=== PATIENT | female | born 1980 | race Caucasian/White ===

== ENCOUNTER 2018-01-01 12:20 | Emergency (ER) | payer BC, OTHER ==
[2018-01-01] MEDS ORDERED: Sodium Chloride 0.9% 1,000 ML IV ONE (12:38)
[2018-01-01 12:39] VITALS: BP 125/62
--- NOTE | 2018-01-01 12:52 | EDM.PDOC ---
ED HPI GENERAL MEDICAL PROBLEM - General Chief Complaint: Diabetic Complaint Stated Complaint: DEHYDRATION Time Seen by Provider: 01/01/18 12:40 Source of Information: Reports: Patient History Limitations: Reports: No Limitations - History of Present Illness INITIAL COMMENTS - FREE TEXT/NARRATIVE: This 37 yo female patient reports to the ED due to an episode of near syncope. The patient reports she has been having bowel issues over the past couple of months with intermittent diarrhea. The patient reports that she has seen a GI specialist and has further testing scheduled for the end of January (upper and lower scopes). The patient has a history of Diabetes and is on an insulin pump. The patient reports her last A1C was 6.5. The patient reports that she was running today and started to have some lightheadedness and dizziness. The patient believes with the extra work outs and diarrhea that she is dehydrated. The patient reports that she had a loose bowel movement yesterday. Onset: Sudden Duration: Constant Location: Reports: Generalized Quality: Reports: Other Severity: Moderate Improves with: Reports: Rest Worsens with: Reports: Movement Context: Reports: Exercise - Related Data Allergies Allergy/AdvReac Type Severity Reaction Status Date / Time amoxicillin [Amoxicillin] Allergy Rash Verified 12/07/15 09:03 Home Meds: Home Meds Hydrochlorothiazide 25 mg PO DAILY 07/23/13 [History] Insulin Lispro [Humalog] 2.25 units SQ ASDIRECTED 07/23/13 [History] Levothyroxine Sodium 150 mcg PO DAILY 07/23/13 [History] Lisinopril 40 mg PO DAILY 07/23/13 [History] atorvaSTATin Calcium [Atorvastatin Calcium] 10 mg PO DAILY 07/23/13 [History] Albuterol [Proventil Neb Soln] 1 packet INH QID PRN 08/13/15 [History] Past Medical History Cardiovascular History: Reports: Hypertension Respiratory History: Reports: Bronchitis, Recurrent, Other (See Below) Other Respiratory History: currently with pneumonia, uses home neb tx since she has been ill 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: Musculoskeletal History: Reports: Arthritis Other Psychiatric History: has not taken anti-depressants for 5 years Endocrine/Metabolic History: Reports: Diabetes, Type I, Hypothyroidism - Infectious Disease History Infectious Disease History: Reports: Chicken Pox - Past Surgical History Female Surgical History: Reports: Oophorectomy, Other (See Below) Social & Family History - Family History Cardiac: Reports: Heart Failure Respiratory: Reports: Asthma Neurological: Reports: Dementia Endocrine/Metabolic: Reports: Diabetes, Type I Dermatologic: Reports: Psoriasis Oncologic: Reports: Prostate ED ROS GENERAL - Review of Systems Review Of Systems: ROS reveals no pertinent complaints other than HPI. ED EXAM GENERAL NO PERIP PULSE - Physical Exam Exam: See Below Exam Limited By: No Limitations General Appearance: Alert, WD/WN, Mild Distress Eye Exam: Bilateral Eye: EOMI, Normal Inspection, PERRL Ears: Normal External Exam, Normal Canal, Hearing Grossly Normal, Normal TMs Nose: Normal Inspection, Normal Mucosa, No Blood Throat/Mouth: Normal Inspection Head: Atraumatic, Normocephalic Neck: Normal Inspection, Supple, Non-Tender, Full Range of Motion Respiratory/Chest: No Respiratory Distress Cardiovascular: Normal Peripheral Pulses, Regular Rate, Rhythm, No Edema, No Gallop, No JVD, No Murmur, No Rub GI/Abdominal: Normal Bowel Sounds, Soft, Non-Tender, No Organomegaly, No Distention, No Abnormal Bruit, No Mass (Female) Exam: Deferred Rectal (Female) Exam: Deferred Back Exam: Normal Inspection, Full Range of Motion, NT Extremities: Normal Inspection, Normal Range of Motion, Non-Tender, Normal Capillary Refill, No Pedal Edema Neurological: Alert, Oriented, CN II-XII Intact, Normal Cognition, Normal Gait, Normal Reflexes, No Motor/Sensory Deficits Psychiatric: Normal Affect, Normal Mood Skin Exam: Warm, Dry, Intact, Normal Color, No Rash Lymphatic: No Adenopathy Course - Vital Signs Last Recorded V/S: Last Vital Signs Temp 36.2 C 01/01/18 12:38 Pulse 64 01/01/18 12:38 Resp 16 01/01/18 12:38 BP 125/62 01/01/18 12:38 Pulse Ox 99 01/01/18 12:38 - Orders/Labs/Meds Labs: Laboratory Tests 01/01/18 01/01/18 01/01/18 Range/Units 12:52 12:52 12:52 WBC 14.4 H (5.0-10.0) 10^3/uL RBC 4.55 (4.2-5.4) 10^6/uL Hgb 13.6 (12.0-16.0) g/dL Hct 40.4 (37.0-47.0) % MCV 88.8 (80-100) fL MCH 29.9 (27.0-34.0) pg MCHC 33.7 (33.0-35.0) g/dL Plt Count 251 (150-450) 10^3/uL Neut % (Auto) 86.5 H (42.2-75.2) % Lymph % (Auto) 8.3 L (20.5-50.1) % [place] % (Auto) 4.6 (2-8) % Eos % (Auto) 0.3 L (1.0-3.0) % Baso % (Auto) 0.3 (0.0-1.0) % Sodium 133 L (135-145) mmol/L Potassium 3.4 L (3.6-5.0) mmol/L Chloride 103 (101-111) mmol/L Carbon Dioxide 22.0 (21.0-31.0) mmol/L Anion Gap 11.4 BUN 14 (7-18) mg/dL Creatinine 1.0 (0.6-1.3) mg/dL Est Cr Clr Drug Dosing 82.48 mL/min Estimated GFR (MDRD) > 60 BUN/Creatinine Ratio 14.00 Glucose 203 H (74-105) mg/dL Calcium 8.8 (8.4-10.2) mg/dl Total Bilirubin 1.4 H (0.2-1.0) mg/dL AST 21 (10-42) IU/L ALT 17 (10-60) IU/L Alkaline Phosphatase 53 (42-121) IU/L Total Protein 7.0 (6.7-8.2) g/dl Albumin 3.9 (3.2-5.5) g/dl Globulin 3.1 Albumin/Globulin Ratio 1.26 Ketones Negative Meds: Medications Discontinued Medications Generic Name Dose Route Start Last Admin Trade Name Freq PRN Reason Stop Dose Admin Sodium Chloride 1,000 mls @ 999 mls/hr 01/01/18 12:38 01/01/18 13:08 Normal Saline IV 01/01/18 13:38 999 mls/hr .BOLUS ONE Administration Departure - Departure Time of Disposition: 14:16 Disposition: Home, Self-Care 01 Condition: Good Clinical Impression: Dehydration after exertion - Discharge Information *PRESCRIPTION DRUG MONITORING PROGRAM REVIEWED*: Not Applicable *COPY OF PRESCRIPTION DRUG MONITORING REPORT IN PATIENT RICCARDO: Not Applicable Instructions: Dehydration, Adult, [id number] Forms: ED Department Discharge Care Plan Goals: The patient was advised of the examination and lab results during the visit. The patient was given a liter of IV fluids while in the ED. The patient was encouraged to increase her oral fluid intake with exercise (pre hydrate). If she has any additional symptoms or further concerns, the patient should follow- up with her primary care facility or return to the emergency department.
[2018-01-01 13:15] LABS: ANION GAP 11.4; CHLORIDE,CL 103 mmol/L (101-111); SODIUM,NA 133 mmol/L (135-145)
== END 2018-01-01 14:21 | disposition home or self-care (01) ==
LOC: DL.ED 12:20
DX: E86.0 Dehydration (principal); E10.9 Type 1 diabetes mellitus without complications; I10 Essential (primary) hypertension; Z79.899 Other long term (current) drug therapy; Z88.1 Allergy status to other antibiotic agents
CPT/HCPCS: 36415; 80053; 82009; 85025; 96360; 99284; J7030

== ENCOUNTER 2018-07-31 19:04 | Emergency (ER) | payer OTHER ==
[2018-07-31 19:12] VITALS: BP 140/86
[2018-07-31] MEDS ORDERED: Tetracaine HCl/PF 0.5% 4 ML Bottle EYERT ONE (19:29)
[2018-07-31] MEDS ORDERED: Sodium Chloride 0.9% 1,000 ML IV ONE (19:30)
[2018-07-31] MEDS ORDERED: Ketorolac 30 MG/ML SDV IVPUSH ONE (19:30)
--- NOTE | 2018-07-31 19:34 | EDM.PDOC ---
ED HPI GENERAL MEDICAL PROBLEM - General Chief Complaint: ENT Problem Stated Complaint: DIABETIC, EARACHE OUT OF CONTROL Time Seen by Provider: 07/31/18 19:31 Source of Information: Reports: Patient History Limitations: Reports: No Limitations - History of Present Illness INITIAL COMMENTS - FREE TEXT/NARRATIVE: onset right ear pain Friday, did tried using some old ear drops but not helping , got worse went to clinic today got ciprodex but still in pain and now feels feverish. doesn't want pain meds due to side effects. 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: Acetaminophen, NSAIDS, Other Medication(s) Right Ear Pain Score (Numeric/FACES): 8 - Related Data Allergies Allergy/AdvReac Type Severity Reaction Status Date / Time amoxicillin [Amoxicillin] Allergy Rash Verified 12/07/15 09:03 Home Meds: Home Meds Hydrochlorothiazide 25 mg PO DAILY 07/23/13 [History] Insulin Lispro [Humalog] 2.25 units SQ ASDIRECTED 07/23/13 [History] Levothyroxine Sodium 150 mcg PO DAILY 07/23/13 [History] Lisinopril 40 mg PO DAILY 07/23/13 [History] atorvaSTATin Calcium [Atorvastatin Calcium] 10 mg PO DAILY 07/23/13 [History] Albuterol [Proventil Neb Soln] 1 packet INH QID PRN 08/13/15 [History] Past Medical History Cardiovascular History: Reports: Hypertension Respiratory History: Reports: Bronchitis, Recurrent, Other (See Below) Other Respiratory History: currently with pneumonia, uses home neb tx since she has been ill 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: Musculoskeletal History: Reports: Arthritis Psychiatric History: Reports: Depression Other Psychiatric History: has not taken anti-depressants for 5 years Endocrine/Metabolic History: Reports: Diabetes, Type I, Hypothyroidism - Infectious Disease History Infectious Disease History: Reports: Chicken Pox - Past Surgical History HEENT Surgical History: Reports: Tonsillectomy Female Surgical History: Reports: Oophorectomy, Other (See Below) Social & Family History - Family History Family Medical History: Noncontributory Cardiac: Reports: Heart Failure Respiratory: Reports: Asthma Neurological: Reports: Dementia Endocrine/Metabolic: Reports: Diabetes, Type I Dermatologic: Reports: Psoriasis Oncologic: Reports: Prostate - Tobacco Use Smoking Status *Q: Current Every Day Smoker Years of Tobacco use: 23 Packs/Tins Daily: 0.5 Used Tobacco, but Quit: No Second Hand Smoke Exposure: Yes - Caffeine Use Caffeine Use: Reports: Coffee - Recreational Drug Use Recreational Drug Use: No ED ROS ENT - Review of Systems Review Of Systems: ROS reveals no pertinent complaints other than HPI. ED EXAM, ENT - Physical Exam Exam: See Below Exam Limited By: No Limitations General Appearance: Alert, WD/WN, Mild Distress, Moderate Distress, Other (pain) Ears: Other (right ombo hyperemic, TM dull, canal not inflammed) Mouth/Throat: Normal Inspection Head: Atraumatic Neck: Non-Tender, Full Range of Motion Respiratory/Chest: No Respiratory Distress Cardiovascular: Regular Rate, Rhythm GI/Abdominal: Soft, Non-Tender Neurological: Alert, Oriented, Normal Cognition, Normal Gait, No Motor/Sensory Deficits Psychiatric: Tearful Skin: Warm, Dry, Normal Color Lymphatic: No Adenopathy Course - Vital Signs Last Recorded V/S: Last Vital Signs Temp 36.1 C 07/31/18 19:11 Pulse 88 07/31/18 19:11 Resp 16 07/31/18 19:11 BP 140/86 07/31/18 19:11 Pulse Ox 98 07/31/18 19:11 - Orders/Labs/Meds Labs: Laboratory Tests 07/31/18 07/31/18 07/31/18 Range/Units 19:36 19:36 19:36 WBC 11.9 H (5.0-10.0) 10^3/uL RBC 4.81 (4.2-5.4) 10^6/uL Hgb 14.6 (12.0-16.0) g/dL Hct 42.8 (37.0-47.0) % MCV 89.0 (80-100) fL MCH 30.4 (27.0-34.0) pg MCHC 34.1 (33.0-35.0) g/dL Plt Count 268 (150-450) 10^3/uL Neut % (Auto) 76.7 H (42.2-75.2) % Lymph % (Auto) 14.1 L (20.5-50.1) % [place] % (Auto) 6.5 (2-8) % Eos % (Auto) 2.2 (1.0-3.0) % Baso % (Auto) 0.5 (0.0-1.0) % Sodium 133 L (135-145) mmol/L Potassium 3.7 (3.6-5.0) mmol/L Chloride 102 (101-111) mmol/L Carbon Dioxide 24.0 (21.0-31.0) mmol/L Anion Gap 10.7 BUN 11 (7-18) mg/dL Creatinine 0.7 (0.6-1.3) mg/dL Est Cr Clr Drug Dosing 116.68 mL/min Estimated GFR (MDRD) > 60 BUN/Creatinine Ratio 15.71 Glucose 157 H (74-105) mg/dL Calcium 8.4 (8.4-10.2) mg/dl Total Bilirubin 1.3 H (0.2-1.0) mg/dL AST 21 (10-42) IU/L ALT 20 (10-60) IU/L Alkaline Phosphatase 70 (42-121) IU/L C-Reactive Protein < 0.5 (0.0-1.3) mg/dL Total Protein 7.1 (6.7-8.2) g/dl Albumin 3.9 (3.2-5.5) g/dl Globulin 3.2 Albumin/Globulin Ratio 1.22 Meds: Medications Discontinued Medications Generic Name Dose Route Start Last Admin Trade Name Freq PRN Reason Stop Dose Admin Sodium Chloride 1,000 mls @ 999 mls/hr 07/31/18 19:30 07/31/18 19:39 Normal Saline IV 07/31/18 20:30 999 mls/hr .BOLUS ONE Administration Ketorolac Tromethamine 30 mg 07/31/18 19:30 07/31/18 19:40 Toradol IVPUSH 07/31/18 19:31 30 mg ONETIME ONE Administration Tetracaine HCl 2 ml 07/31/18 19:29 07/31/18 19:39 Tetracaine 0.5% Steri-Unit Princess EYERT 07/31/18 19:30 2 ml ASDIRECTED ONE Administration - Re-Assessments/Exams Free Text/Narrative Re-Assessment/Exam: 07/31/18 20:12 results discussed with pt who is feeling much better now s/p Rx. 07/31/18 20:38 re-exam; feel better but now has ALEJANDRE still decline pain med but will try tylenol or motrin Departure - Departure Time of Disposition: 20:39 Disposition: Home, Self-Care 01 Condition: Good Clinical Impression: Otitis media Qualifiers: Otitis media type: suppurative Chronicity: acute Laterality: right Recurrence: non-recurrent Spontaneous tympanic membrane rupture: without spontaneous rupture Qualified Code(s): H66.001 - Acute suppurative otitis media without spontaneous rupture of ear drum, right ear Otitis externa Qualifiers: Otitis externa type: unspecified type Chronicity: acute Laterality: right Qualified Code(s): H60.501 - Unspecified acute noninfective otitis externa, right ear - Discharge Information Instructions: Otitis Media, Adult, [id number] Forms: ED Department Discharge Additional Instructions: 1) use drops as needed for ear pain 2) don't get water inside ear for a week 3) follow up at clinic rx weno; tetracaine drops 2 drops to right ear as needed for pain
[2018-07-31 20:02] LABS: ANION GAP 10.7; CHLORIDE,CL 102 mmol/L (101-111); SODIUM,NA 133 mmol/L (135-145)
== END 2018-07-31 20:47 | disposition home or self-care (01) ==
LOC: DL.ED 19:04
DX: H66.001 Acute suppurative otitis media without spontaneous rupture of ear drum, right ear (principal); H60.501 Unspecified acute noninfective otitis externa, right ear; I10 Essential (primary) hypertension; E10.9 Type 1 diabetes mellitus without complications; F17.210 Nicotine dependence, cigarettes, uncomplicated; E03.9 Hypothyroidism, unspecified; Z88.1 Allergy status to other antibiotic agents; Z79.899 Other long term (current) drug therapy
CPT/HCPCS: 36415; 80053; 85025; 86140; 87804; 96361; 96374; 99282; J1885; J7030

== ENCOUNTER 2020-03-17 04:34 | Emergency (ER) | payer OTHER ==
[2020-03-17] MEDS ORDERED: Sodium Chloride 0.9% 1,000 ML IV ONE (04:48)
[2020-03-17 04:50] VITALS: BP 118/61; PULSE 82
--- NOTE | 2020-03-17 04:54 | EDM.PDOC ---
ED HPI GENERAL MEDICAL PROBLEM - General Chief Complaint: Diabetic Complaint Stated Complaint: VOMITING & DHIARRHEA Time Seen by Provider: 03/17/20 04:45 Source of Information: Reports: Patient History Limitations: Reports: No Limitations - History of Present Illness INITIAL COMMENTS - FREE TEXT/NARRATIVE: This 40 yo female patient reports to the ED due to nausea, vomiting and diarrhea. The patient reports her symptoms started yesterday at about 1100 and have continued to get worse. The patient reports she is a type 1 diabetic and is worried about going into DKA. The patient reports she did eat last night at about 1800 and has been taking sips of fluids. The patient reports she has had a family member with similar symptoms over the past couple of days. The patient reports her blood sugar was elevated earlier, but was 105 upon arrival in the ED. Onset Date: 03/16/20 Onset Time: 11:00 Duration: Constant, Getting Worse Location: Reports: Abdomen Quality: Reports: Ache Severity: Moderate Improves with: Reports: None Worsens with: Reports: None Context: Reports: Other Associated Symptoms: Reports: Nausea/Vomiting, Other (diarrhea) Upper Abdomen Pain Score (Numeric/FACES): 6 - Related Data Allergies Allergy/AdvReac Type Severity Reaction Status Date / Time amoxicillin [Amoxicillin] Allergy Rash Verified 03/17/20 04:50 morphine Allergy Cannot Verified 03/17/20 04:50 Remember Home Meds: Home Meds Hydrochlorothiazide 25 mg PO DAILY 07/23/13 [History] Insulin Lispro [Humalog] 2.25 units SQ ASDIRECTED 07/23/13 [History] Levothyroxine Sodium 150 mcg PO DAILY 07/23/13 [History] Lisinopril 40 mg PO DAILY 07/23/13 [History] atorvaSTATin Calcium [Atorvastatin Calcium] 10 mg PO DAILY 07/23/13 [History] Albuterol [Proventil Neb Soln] 1 packet INH QID PRN 08/13/15 [History] Past Medical History Cardiovascular History: Reports: Hypertension Respiratory History: Reports: Bronchitis, Recurrent, Other (See Below) Other Respiratory History: currently with pneumonia, uses home neb tx since she has been ill 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: Musculoskeletal History: Reports: Arthritis Psychiatric History: Reports: Depression Other Psychiatric History: has not taken anti-depressants for 5 years Endocrine/Metabolic History: Reports: Diabetes, Type I, Hypothyroidism - Infectious Disease History Infectious Disease History: Reports: Chicken Pox - Past Surgical History HEENT Surgical History: Reports: Tonsillectomy Female Surgical History: Reports: Oophorectomy, Other (See Below) Social & Family History - Family History Family Medical History: Noncontributory Cardiac: Reports: Heart Failure Respiratory: Reports: Asthma Neurological: Reports: Dementia Endocrine/Metabolic: Reports: Diabetes, Type I Dermatologic: Reports: Psoriasis Oncologic: Reports: Prostate - Caffeine Use Caffeine Use: Reports: Coffee ED ROS GENERAL - Review of Systems Review Of Systems: Comprehensive ROS is negative, except as noted in HPI. ED EXAM GENERAL NO PERIP PULSE - Physical Exam Exam: See Below Exam Limited By: No Limitations General Appearance: Alert, WD/WN, Mild Distress, Obese Eye Exam: Bilateral Eye: EOMI, Normal Inspection, PERRL Ears: Normal External Exam, Normal Canal, Hearing Grossly Normal, Normal TMs Nose: Normal Inspection, Normal Mucosa, No Blood Throat/Mouth: Normal Inspection, Normal Lips, Normal Teeth, Normal Gums, Normal Oropharynx, Normal Voice, No Airway Compromise Head: Atraumatic, Normocephalic Neck: Normal Inspection, Supple, Non-Tender, Full Range of Motion Respiratory/Chest: No Respiratory Distress, Lungs Clear, Normal Breath Sounds, No Accessory Muscle Use, Chest Non-Tender Cardiovascular: Normal Peripheral Pulses GI/Abdominal: Normal Bowel Sounds, No Organomegaly, No Distention, No Abnormal Bruit, No Mass, Pelvis Stable, Tender (diffuse) (Female) Exam: Deferred Rectal (Female) Exam: Deferred Back Exam: Normal Inspection, Full Range of Motion, NT Extremities: Normal Inspection, Normal Range of Motion, Non-Tender, Normal Capillary Refill, No Pedal Edema Neurological: Alert, Oriented, CN II-XII Intact, Normal Cognition, Normal Gait, Normal Reflexes, No Motor/Sensory Deficits Psychiatric: Normal Affect, Normal Mood Skin Exam: Warm, Dry, Normal Color, No Rash Lymphatic: No Adenopathy Course - Vital Signs Last Recorded V/S: Last Vital Signs Temp 35.8 C L 03/17/20 04:40 Pulse 82 03/17/20 04:40 Resp 19 03/17/20 04:40 BP 118/61 03/17/20 04:40 Pulse Ox 96 03/17/20 04:40 - Orders/Labs/Meds Orders: Active Orders 24 hr Category Date Time Status Glucose [Blood Glucose Check, Bedside] [RC] ONETIME Care 03/17/20 04:53 Active Labs: Laboratory Tests 03/17/20 03/17/20 03/17/20 Range/Units 04:37 04:43 04:43 WBC 15.1 H (5.0-10.0) 10^3/uL RBC 4.78 (4.2-5.4) 10^6/uL Hgb 14.3 (12.0-16.0) g/dL Hct 42.3 (37.0-47.0) % MCV 88.5 (80-100) fL MCH 29.9 (27.0-34.0) pg MCHC 33.8 (33.0-35.0) g/dL Plt Count 245 (150-450) 10^3/uL Neut % (Auto) 84.8 H (42.2-75.2) % Lymph % (Auto) 7.2 L (20.5-50.1) % [place] % (Auto) 5.6 (2-8) % Eos % (Auto) 2.3 (1.0-3.0) % Baso % (Auto) 0.1 (0.0-1.0) % Sodium 138 (136-145) mmol/L Potassium 4.5 (3.5-5.1) mmol/L Chloride 103 (98-107) mmol/L Carbon Dioxide 24 (21-32) mmol/L Anion Gap 15.5 H (7-13) mEq/L BUN 19 H (7-18) mg/dL Creatinine 0.92 (0.55-1.02) mg/dL Est Cr Clr Drug Dosing 87.02 mL/min Estimated GFR (MDRD) > 60 BUN/Creatinine Ratio 20.7 (No establ ref range) Glucose 107 H (74-99) mg/dL POC Glucose 106 H (70-105) mg/dl Lactic Acid (0.4-2.0) mmol/L Calcium 8.7 (8.5-10.1) mg/dL Total Bilirubin 1.5 H (0.2-1.0) mg/dL AST 21 (15-37) U/L ALT 32 (14-59) U/L Alkaline Phosphatase 71 (46-116) U/L Total Protein 7.2 (6.4-8.2) g/dL Albumin 3.6 (3.4-5.0) g/dL Globulin 3.6 Albumin/Globulin Ratio 1.0 Ketones Negative 03/17/20 Range/Units 05:09 WBC (5.0-10.0) 10^3/uL RBC (4.2-5.4) 10^6/uL Hgb (12.0-16.0) g/dL Hct (37.0-47.0) % MCV (80-100) fL MCH (27.0-34.0) pg MCHC (33.0-35.0) g/dL Plt Count (150-450) 10^3/uL Neut % (Auto) (42.2-75.2) % Lymph % (Auto) (20.5-50.1) % [place] % (Auto) (2-8) % Eos % (Auto) (1.0-3.0) % Baso % (Auto) (0.0-1.0) % Sodium (136-145) mmol/L Potassium (3.5-5.1) mmol/L Chloride (98-107) mmol/L Carbon Dioxide (21-32) mmol/L Anion Gap (7-13) mEq/L BUN (7-18) mg/dL Creatinine (0.55-1.02) mg/dL Est Cr Clr Drug Dosing mL/min Estimated GFR (MDRD) BUN/Creatinine Ratio (No establ ref range) Glucose (74-99) mg/dL POC Glucose (70-105) mg/dl Lactic Acid 0.7 (0.4-2.0) mmol/L Calcium (8.5-10.1) mg/dL Total Bilirubin (0.2-1.0) mg/dL AST (15-37) U/L ALT (14-59) U/L Alkaline Phosphatase (46-116) U/L Total Protein (6.4-8.2) g/dL Albumin (3.4-5.0) g/dL Globulin Albumin/Globulin Ratio Ketones Meds: Medications Discontinued Medications Generic Name Dose Route Start Last Admin Trade Name Freq PRN Reason Stop Dose Admin Sodium Chloride 1,000 mls @ 999 mls/hr 03/17/20 04:48 03/17/20 04:53 Normal Saline IV 03/17/20 05:48 999 mls/hr .BOLUS ONE Administration Iopamidol 100 ml 03/17/20 05:44 03/17/20 06:18 Isovue-300 (61%) IVPUSH 03/17/20 05:45 100 ml ONETIME ONE Administration Departure - Departure Time of Disposition: 06:42 Disposition: Home, Self-Care 01 Condition: Fair Clinical Impression: Gastroenteritis - Discharge Information *PRESCRIPTION DRUG MONITORING PROGRAM REVIEWED*: Not Applicable *COPY OF PRESCRIPTION DRUG MONITORING REPORT IN PATIENT RICCARDO: Not Applicable Instructions: Viral Gastroenteritis, Adult, [id number] Forms: ED Department Discharge Care Plan Goals: The patient was advised of the examination, lab and CT results during the visit. The patient was given a liter of IV fluids during the visit. The patient was encouraged to stick to a BRAT diet (bananas, rice, applesauce and toast) over the next 24 hours with small frequent sips of fluid. If the patient has any additional symptoms or concerns, the patient should either return to the emergency department or visit her primary care facility. Sepsis Event Note (ED) - Focused Exam Vital Signs: Vital Signs Temp Pulse Resp BP Pulse Ox 03/17/20 04:40 35.8 C L 82 19 118/61 96 - My Orders Last 24 Hours: My Active Orders 03/17/20 04:53 Glucose [Blood Glucose Check, Bedside] [RC] ONETIME - Assessment/Plan Last 24 Hours: My Active Orders 03/17/20 04:53 Glucose [Blood Glucose Check, Bedside] [RC] ONETIME
[2020-03-17 05:15] LABS: ANION GAP 15.5 mEq/L (7-13); CHLORIDE,CL 103 mmol/L (98-107); SODIUM,NA 138 mmol/L (136-145)
[2020-03-17] MEDS ORDERED: Iopamidol 612 MG/ML 100 ML Bottle IVPUSH ONE (05:44)
--- NOTE | 2020-03-17 06:39 | CT ---
PROCEDURE INFORMATION: Exam: CT Abdomen And Pelvis With Contrast Exam date and time: 03/17/2020 5:58 AM Age: 40 years old Clinical indication: Abdominal pain TECHNIQUE: Imaging protocol: Computed tomography of the abdomen and pelvis with intravenous contrast. Radiation optimization: All CT scans at this facility use at least one of these dose optimization techniques: automated exposure control; mA and/or kV adjustment per patient size (includes targeted exams where dose is matched to clinical indication); or iterative reconstruction. Contrast material: ISOVUE; Contrast volume: 100 ml; Contrast route: INTRAVENOUS (IV); COMPARISON: US Abdomen Ltd 03/20/2018 9:59 AM FINDINGS: Liver: Unremarkable liver. Gallbladder and bile ducts: Cholecystectomy. No biliary ductal dilatation. Pancreas: Fatty infiltration of the pancreas. No pancreatic ductal dilatation. Spleen: No splenomegaly. Adrenal glands: No adrenal mass. Kidneys and ureters: 12 mm elongated focus of density measuring 15 HU in the posterior right mid renal cortex likely representing a cyst. No hydronephrosis. Stomach and bowel: Unremarkable. No obstruction. No apparent mucosal thickening. Appendix: Normal appendix. Intraperitoneal space: No free air. Vasculature: Unremarkable. No abdominal aortic aneurysm. Lymph nodes: No enlarged nodes. Urinary bladder: Unremarkable as visualized. Reproductive: 18 mm follicular cyst in the left ovary. Unremarkable uterus. Bones/joints: Old compression fractures. Degeneration of several discs. Soft tissues: Minimal supraumbilical and small periumbilical and left inguinal hernias containing fat. Evidence of prior right buttock injections. IMPRESSION: No acute disease. Small right renal mass likely representing a cyst. No further workup recommended. Other findings detailed above. COMMENTS: Consistent with the [employer]'s Incidental Findings Committee white paper (J Am Hayden Radiol 2018): Any incidental renal lesion less than 1 cm or classified as too small to characterize, or any incidental cystic renal lesion characterized as simple-appearing, is likely benign. No follow-up imaging is recommended for these lesions per consensus recommendations based on imaging criteria.
== END 2020-03-17 06:48 | disposition home or self-care (01) ==
LOC: DL.ED 04:34
DX: K52.9 Noninfective gastroenteritis and colitis, unspecified (principal); I10 Essential (primary) hypertension; E10.9 Type 1 diabetes mellitus without complications; E03.9 Hypothyroidism, unspecified; E66.9 Obesity, unspecified; Z68.39 Body mass index [BMI] 39.0-39.9, adult; Z88.1 Allergy status to other antibiotic agents; Z88.5 Allergy status to narcotic agent; Z79.899 Other long term (current) drug therapy
CPT/HCPCS: 36415; 74177; 80053; 82009; 82962; 83605; 85025; 99284; J7030; Q9967

== ENCOUNTER 2022-08-02 22:14 | Emergency (ER) | payer OTHER ==
[2022-08-02 22:30] VITALS: BP 149/68; PULSE 76
== END 2022-08-02 22:55 | disposition home or self-care (01) ==
LOC: DL.ED 22:14
DX: Z77.098 Contact with and (suspected) exposure to other hazardous, chiefly nonmedicinal, chemicals (principal); I10 Essential (primary) hypertension; E10.9 Type 1 diabetes mellitus without complications; E03.9 Hypothyroidism, unspecified; Z72.0 Tobacco use; Z88.0 Allergy status to penicillin; Z88.5 Allergy status to narcotic agent; Z79.899 Other long term (current) drug therapy
CPT/HCPCS: 99282; 99283

== ENCOUNTER 2023-01-21 17:15 | Emergency (ER) | payer OTHER ==
[2023-01-21] MEDS ORDERED: Sodium Chloride 0.9% 10 ML Syringe FLUSH PRN (17:25)
[2023-01-21 17:29] VITALS: BP 136/77; PULSE 56
[2023-01-21 17:41] LABS: BASOPHILS PERCENT AUTO 0.7 % (0.0-1.0); EOSINOPHILS PERCENT AUTO 1.6 % (1.0-3.0); HEMATOCRIT 34.6 % (37.0-47.0); HEMOGLOBIN 11.8 g/dL (12.0-16.0); MEAN CORPUSCULAR HEMOGLOBIN 30.3 pg (27.0-34.0); MEAN CORPUSCULAR HGB CONC 34.1 g/dL (33.0-35.0); MEAN CORPUSCULAR VOLUME 88.7 fL (80-100); MONOCYTES PERCENT AUTO 18.7 % (2-8); PLATELET COUNT,PLT 211 10^3/uL (150-450); WHITE BLOOD CELL COUNT,WBC 6.1 10^3/uL (5.0-10.0)
[2023-01-21 17:46] LABS: APPEARANCE,URINE CLEAR (CLEAR); BILIRUBIN,URINE NEGATIVE (NEGATIVE); GLUCOSE,URINE NEGATIVE (NEGATIVE); KETONES,URINE NEGATIVE (NEGATIVE); LEUKOCYTE ESTERASE,URINE NEGATIVE (NEGATIVE); NITRITE,URINE NEGATIVE (NEGATIVE); OCCULT BLOOD,URINE NEGATIVE (NEGATIVE); PH,URINE 6.5 (5.0-9.0); PROTEIN,URINE NEGATIVE (NEGATIVE); UROBILINOGEN,URINE 0.2 mg/dL (0.2-1.0)
[2023-01-21 17:47] LABS: COLOR,URINE LIGHT YELLOW (YELLOW)
[2023-01-21 17:56] LABS: PROTHROMBIN TIME 9.8 SEC (9.0-12.0)
[2023-01-21] MEDS ORDERED: Ketorolac 30 MG/ML SDV IVPUSH ONE (17:59)
[2023-01-21] MEDS ORDERED: Sodium Chloride 0.9% 1,000 ML IV ONE (17:59)
[2023-01-21 18:04] LABS: A/G RATIO 0.9; ALBUMIN 3.5 g/dL (3.4-5.0); ANION GAP 12.9 mEq/L (7-13); BILIRUBIN TOTAL 0.4 mg/dL (0.2-1.0); BUN/CREATININE RATIO 11.9 (No establ ref range); C-REACTIVE PROTEIN 0.62 ng/dL (<=0.30); CALCIUM 8.8 mg/dL (8.5-10.1); CREATININE 0.84 mg/dL (0.55-1.02); EST CRCL DRUG DOSING (CG) 92.42 mL/min; LACTIC ACID 0.6 mmol/L (0.4-2.0); MAGNESIUM 1.8 mg/dL (1.8-2.4); POTASSIUM,K 3.9 mmol/L (3.5-5.1); PROTEIN TOTAL,TP 7.2 g/dL (6.4-8.2)
[2023-01-21] MEDS ORDERED: Iopamidol 755 Mg/ML 100 ML Bottle IVPUSH ONE (18:26)
[2023-01-21] MEDS ORDERED: Dexamethasone 4 MG/ML SDV IVPUSH ONE (20:11)
== END 2023-01-21 20:25 | disposition home or self-care (01) ==
LOC: DL.ED 17:15
DX: U07.1 COVID-19 (principal); I10 Essential (primary) hypertension; Z88.0 Allergy status to penicillin; Z88.5 Allergy status to narcotic agent; Z79.4 Long term (current) use of insulin; Z79.899 Other long term (current) drug therapy
CPT/HCPCS: 36415; 71275; 80053; 81003; 82150; 83605; 83690; 83735; 84484; 85025; 85379; 85610; 86140; 86308; 87040; 93005; 93010; 96374; 96375; 99284; 99285-25; J1100; J1885; J3490; J7030; Q9967; U0002

== ENCOUNTER 2024-06-10 22:15 | Emergency (ER) | payer OTHER ==
[2024-06-10] MEDS: Iopamidol 612 MG/ML 100 ML Bottle IVPUSH ONE (23:50)
[2024-06-10] MEDS: HYDROmorphone 0.5 MG/0.5 ML Syringe IVPUSH ONE (23:57)
[2024-06-10] MEDS: Ondansetron 4 MG/2 ML SDV IVPUSH ONE (23:57)
[2024-06-11] MEDS: Sodium Chloride 0.9% 1,000 ML IV ONE
[2024-06-11 00:23] LABS: BASOPHILS PERCENT AUTO 0.4 % (0.0-1.0); EOSINOPHILS PERCENT AUTO 1.4 % (1.0-3.0); HEMATOCRIT 37.6 % (37.0-47.0); HEMOGLOBIN 12.3 g/dL (12.0-16.0); LYMPHOCYTES PERCENT AUTO 16.8 % (20.5-50.1); MEAN CORPUSCULAR HEMOGLOBIN 29.4 pg (27.0-34.0); MEAN CORPUSCULAR HGB CONC 32.7 g/dL (33.0-35.0); MONOCYTES PERCENT AUTO 7.3 % (2-8); NEUTROPHILS PERCENT AUTO 74.1 % (42.2-75.2); PLATELET COUNT,PLT 303 10^3/uL (150-450); RED BLOOD CELL COUNT 4.18 10^6/uL (4.2-5.4); WHITE BLOOD CELL COUNT,WBC 14.8 10^3/uL (5.0-10.0)
[2024-06-11 00:40] LABS: LACTIC ACID 1.3 mmol/L (0.4-2.0)
[2024-06-11 00:48] LABS: ALANINE AMINOTRANSFERASE,ALT 37 U/L (14-59); ALBUMIN 3.8 g/dL (3.4-5.0); ALKALINE PHOSPHATASE 97 U/L (46-116); ANION GAP 13.1 mEq/L (7-13); ASPARTATE AMNIOTRANSFERASE,AST 23 U/L (15-37); BILIRUBIN TOTAL 0.5 mg/dL (0.2-1.0); BLOOD UREA NITROGEN,BUN 17 mg/dL (7-18); BUN/CREATININE RATIO 17.7 (No establ ref range); CALCIUM 9.4 mg/dL (8.5-10.1); CARBON DIOXIDE,CO2 29 mmol/L (21-32); CHLORIDE,CL 102 mmol/L (98-107); CREATININE 0.96 mg/dL (0.55-1.02); EST CRCL DRUG DOSING (CG) 82.71 mL/min; ESTIMATED GFR 74 mL/min (>=60); GLUCOSE RANDOM 148 mg/dL (70-99); LIPASE 14 U/L (16-77); MAGNESIUM 1.8 mg/dL (1.8-2.4); POTASSIUM,K 4.1 mmol/L (3.5-5.1); PROTEIN TOTAL,TP 7.5 g/dL (6.4-8.2); SODIUM,NA 140 mmol/L (136-145)
[2024-06-11] MEDS ORDERED: Benzocaine 20% Topical Spray UD MUCMEM ONE (02:09)
[2024-06-11] MEDS: HYDROmorphone 0.5 MG/0.5 ML Syringe IVPUSH ONE (02:14)
[2024-06-11] MEDS: Benzocaine 20% Topical Spray UD MUCMEM ONE (02:14)
[2024-06-11 03:16] VITALS: BP 135/61; PULSE 72
== END 2024-06-11 03:31 ==
LOC: DL.ED 22:15
DX: K56.609 Unspecified intestinal obstruction, unspecified as to partial versus complete obstruction (principal); E10.9 Type 1 diabetes mellitus without complications; E03.9 Hypothyroidism, unspecified; Z87.891 Personal history of nicotine dependence; Z79.899 Other long term (current) drug therapy; Z88.0 Allergy status to penicillin; Z88.5 Allergy status to narcotic agent
CPT/HCPCS: 36415; 43752; 71045; 74018; 74177; 80053; 83605; 83690; 83735; 84484; 85025; 96361; 96374; 96375; 96376; 99285; A9270; J2405; J7030; Q9967